=== PATIENT | male | born 1965 | race Caucasian/White ===

== ENCOUNTER 2024-08-16 02:07 | Emergency (ER) | payer OTHER, SELFPAY ==
--- NOTE | ~2024-08-16 | CT_ITS ---
CT brain wo con Ordering provider: Kaila Charlton MD History: 58 years Male with . fall, lac . Comparison: None. Technique: CT of the head without contrast. Radiation reduction technique utilized.The dose-length product was 681 mGy-cm. FINDINGS: BRAIN PARENCHYMA AND CSF SPACES: No midline shift, mass effect or hemorrhage. The brain parenchyma a nd CSF spaces are otherwise normal. VISUALIZED PARANASAL SINUSES: Well aerated. MASTOIDS: Well aerated. BONES: The bones appear intact. SOFT TISSUES: Visualized nasopharynx is normal. Superficial soft tissues are normal. IMPRESSION: No acute intracranial findings. Reviewed, dictated and finalized at location A.
--- NOTE | ~2024-08-16 | XR_ITS ---
XR chest 1V portable Ordering provider: Kaila Charlton MD History: 58 years Male with . syncope . Comparison: January 24, 2018 FINDINGS: MEDIASTINUM: The cardiac silhouette is not enlarged. LUNGS: No infiltrates, effusions or pneumothorax. Slightly prominent bronchovascular markings in the lower lobes. Pneumonitis cannot be excluded. OTHER: No free air under the diaphragm. Degenerative changes of the spine. IMPRESSION: Prominent markings in the lower lobes. Pneumonitis cannot be excluded. Reviewed, dictated and finalized at location A.
--- NOTE | ~2024-08-16 | XR_ITS ---
XR finger 3rd RT min 2V Ordering provider: Kaila Charlton MD History: . injury during fall . Comparison: None. FINDINGS: BONES: No acute fracture or dislocation. JOINT SPACES: Normal. SOFT TISSUES: Normal. IMPRESSION: No acute osseous abnormality. Reviewed, dictated and finalized at location A.
--- NOTE | ~2024-08-16 | CT_ITS ---
CT facial & cervical spine wo Ordering provider: Kaila Charlton MD History: . abrasion nasal bridge; eval fx . Comparison: None. Technique: Thin slice axial CT of the facial bones was performed without contrast. Coronal and sagit radha reformatted images were also obtained. . Automated exposure control and iterative reconstruction technique were employed. The dose-length product was 344.25 mGy-cm. FINDINGS: PARANASAL SINUSES: Bilateral maxillary sinus otherwise, Well aerated. BONES: No facial fracture including no nasal bone fracture. Right nasal septal deviation. ORBITS AND SUPERFICIAL SOFT TISSUES: The optic globes and orbits are normal. The superficial soft tis sues are normal. VISUALIZED MASTOIDS: Well aerated. LIMITED VISUALIZED BRAIN PARENCHYMA: Normal. IMPRESSION: No facial fracture. CT facial & cervical spine wo Ordering provider: Kaila Charlton MD History: . abrasion nasal bridge; eval fx . Comparison: None. Technique: CT of the cervical spine was performed without contrast. Sagittal and coronal reformatted images were also obtained and reviewed. Automated exposure control and iterative reconstruction gemini hnique were employed. The dose-length product was 344.25 mGy-cm. FINDINGS: VERTEBRAE: No subluxation or acute fracture. The occipital condyles are intact. Degenerative changes of the spine. Bony fragments seen near to the odontoid process are most likely ligamentous ossificat ion is seen. DISC SPACES: Narrowing of the disc C5-C6 and C6-C7. Multilevel facet joint disease. Multilevel uncove rtebral joint osteoarthritic changes. PARASPINOUS SOFT TISSUES: Normal. IMPRESSION: No acute osseous abnormality cervical spine. Multilevel degenerative disc disease. Reviewed, dictated and finalized at location A. IMPRESSION: No facial fracture. CT facial & cervical spine wo Ordering provider: Kaila Charlton MD History: . abrasion nasal bridge; eval fx . Comparison: None. Technique: CT of the cervical spine was performed without contrast. Sagittal a nd coronal reformatted images were also obtained and reviewed. Automated expos ure control and iterative reconstruction technique were employed. The dose-omkar th product was 344.25 mGy-cm. FINDINGS: VERTEBRAE: No subluxation or acute fracture. The occipital condyles are intact. Degenerative changes of the spine. Bony fragments seen near to the odontoid p rocess are most likely ligamentous ossification is seen. DISC SPACES: Narrowing of the disc C5-C6 and C6-C7. Multilevel facet joint dise ase. Multilevel uncovertebral joint osteoarthritic changes. PARASPINOUS SOFT TISSUES: Normal.
[2024-08-16 02:03] VITALS: BP 111/72; PULSE 86; RESP 18; TEMP 36.7; O2SAT 98
--- NOTE | 2024-08-16 02:08 | ECG_ITS ---
Test Date: 2024-08-16 02:16:05 Measurements Intervals [place] Rate: 92 P: 29 MA: 187 QRS: -70 QRSD: 88 T: 33 QT: 342 QTc: 423 Interpretive Statements SINUS RHYTHM ANTERIOR MYOCARDIAL INFARCTION , PROBABLY OLD INFERIOR MYOCARDIAL INFARCTION , OF INDETERMINATE AGE Electronically Signed On 08-16-2024 14:01:15 CDT by Noé Christian D.O
[2024-08-16 02:59] LABS: Basophils Percent Auto 0.2 % (0.2-1.2); Eosinophils Absolute Auto 0.3 K/mm3 (0-0.3); Eosinophils Percent Auto 1.6 % (0-4.4); Hemoglobin 17.3 g/dL (14.0-18.0); Immature Granulocyte Absolute 0.07 K/mm3 (0.00-0.031); Immature Granulocyte Percent A 0.4 % (0-0.5); Lymphocytes Absolute Auto 2.37 K/mm3 (0.9-3.2); Lymphocytes Percent Auto 13.9 % (18.3-44.2); Mean Corpuscular HGB Conc 35.3 g/dl (32-36); Mean Corpuscular Hemoglobin 31.7 pg (26-34); Mean Corpuscular Volume 89.7 fl (80-100); Mean Platelet Volume 11.3 fl (7.4-10.4); Monocytes Absolute Auto 0.4 K/mm3 (0.1-0.6); Monocytes Percent Auto 2.5 % (2.6-8.5); Neutrophils Absolute Auto 13.9 K/mm3 (1.3-6.7); Neutrophils Percent Auto 81.4 % (45.5-73.1); Platelet Count Result 181 k/mm3 (150-375); Red Blood Count 5.46 M/mm3 (4.6-6.20); Red Cell Distribution Width 11.9 % (11.5-14.5); White Blood Count 17.1 K/mm3 (4.5-10.0)
[2024-08-16 03:09] LABS: Alanine Aminotransferase 18 U/L (6-50); Albumin Level 4.1 g/dL (3.5-5.1); Alkaline Phosphatase 61 U/L (38-126); Anion Gap 12 mmol/L (4-12); Aspartate Amino Transferase 19 U/L (17-59); Bilirubin,Total 0.9 mg/dL (0.2-1.3); Blood Urea Nitrogen 24 mg/dL (9-20); Calcium 9.3 mg/dL (8.4-10.2); Carbon Dioxide 24 mmol/L (22-30); Chloride 103 mmol/L (98-107); Estimated CRCL calculation 45 ml/min; Estimated Glomerular Filt Rate 42; Glucose 142 mg/dL (65-110); Potassium 3.6 mmol/L (3.4-5.0); Sodium 139 mmol/L (137-145)
--- NOTE | 2024-08-16 05:25 | ED.FALL ---
HPI - Fall General Chief Complaint: Fall Stated Complaint: fall Time Seen by Provider: 08/16/24 05:23 Source: patient and family Mode of arrival: EMS Limitations: no limitations History of Present Illness HPI Narrative: Patient presents with complaint of head laceration after falling, presumably will getting bed. He is not on anticoagulation. He does not remember all the incident. Patient recently placed on a muscle relaxer for a back injury for which he sees Dr Han with [facility] for physical therapy. He denies being prescribed a steroid. Tetanus status unknown. 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 He does have history of kidney resection. He denies any neck pain but he has a history of shoulder pain that radiates into his neck. Patient does not know if he has any other known kidney dysfunction but he had presumed was below as he states that he had blood work done in February with his urologist Dr Haji and everything was reported as normal. Does not have his phone with him to access any patient portal/outside records. He has a history of hypertension who takes 2 medications for this ; family member at bedside is concerned pressure is lower than normal and he was hypotensive for EMS. No nausea but he is having bilateral leg cramps. Also having pain at right middle finger. Related Data Allergies Allergy/AdvReac Type Severity Reaction Status Date / Time No Known Allergies Allergy Verified 08/16/24 02:10 PMFSH Past Medical History Medical History Benign essential HTN Mixed hyperlipidemia Renal cell adenocarcinoma Surgical History Surgical History H/O left radical nephrectomy Family History Family History Mother Family history of malignant neoplasm Other Family history of cardiovascular disease Social History Social History Social History: Smoking status: Never smoker Second hand tobacco smoke exposure: No Alcohol intake: current Drinks per week: 3 Substance use: never Substance use type: does not use Living arrangements: with family Occupation/Education: occupation Gender identity (if verbalized by the patient): Male Sexual Orientation (if Verbalized by the Patient): Straight or Heterosexual Exam Narrative: GENERAL: Well-appearing, well-nourished, and in no acute distress. HEAD: No raccoon eyes, Piedra's sign. 2cm linear abrasion with slightly ulcerated/denuded tissue on forehead but without shanelle laceration or extension into deeper tissue. EYES: Non injected, non icteric ENT: Nares clear, no rhinorrhea or epistaxis. No septal hematoma. Small superficial abrasion at the bridge of his nose, subcentimeter. He also has another small subcentimeter laceration to the right of his nose. NECK: Supple. CHEST: Speaking in full sentences. No respiratory distress. HEART: Regular rate and rhythm. . ABDOMEN: Soft, nondistended. EXTREMITIES: Normal range of motion. Moves all extremities x4 SKIN: Warm, dry, no rash. NEURO: No focal deficits. Alert and oriented x3. Speaks clearly without aphasia or dysarthria. No abnormal movements appreciated. Answers questions appropriately. Follows commands. PSYCH: Normal mood and affect. Course Vital Signs Vital signs: Vital Signs Temperature 98.1 F 08/16/24 02:03 Pulse Rate 86 08/16/24 02:03 Respiratory Rate 18 08/16/24 02:03 Blood Pressure 111/72 08/16/24 02:03 Pulse Oximetry 98 08/16/24 02:03 Oxygen Delivery Room Air 08/16/24 02:03 Temperature 98.1 F 08/16/24 02:03 Pulse Rate 88 08/16/24 07:40 Respiratory Rate 14 08/16/24 07:40 Blood Pressure 96/60 L 08/16/24 07:40 Pulse Oximetry 96 08/16/24 07:40 Oxygen Delivery Room Air 08/16/24 02:03 MDM - Fall MDM Narrative Medical decision making narrative: Patient presents with bleeding from multiple small scattered wounds after phone will getting out of bed. He does not recall the incident or remember trying to get out of bed. He was recently placed on a muscle relaxer for a back injury. In the emergency department they are afebrile with vital signs within normal limits. Hyperglycemia without anion gap acidosis. Patient also has elevated creatinine at 1.7 however this is consistent with past of 1.6 (in 2020). Possibly CKD though not listed in EMR or in clinic note from that year - though I suspect labs were obtained after that clinic visit. Patient states he has 1 kidney after resection of the other in the setting of renal cancer. He states he had labs drawn and he was told they were all normal and he did not believe he has any underlying kidney disorder/disease. For this reason, will presume ANDREAS and give 1L IVFluids and recommend repeat labs. (This was discussed with patient verbally although accidentally omitted from explicit DC instruction printout) Patient's chest x-ray read by Radiology as pneumonitis and given the leukocytosis out of an abundance of precaution will treat with antibiotics. First dose given in the ED with rest of course prescribed. Verifies understanding and is in agreement. Discussed patient's workup extensively with him. The patient is we needs are not lacerations and therefore not in need of any repair but we did discuss appropriate wound care. Patient denies needing work note for today. Discharged home in stable condition. Provided OTC analgesic pain medication Rxs. Differential Diagnosis Differential diagnosis: Likely syncope, concussion with loss of consciousness, concussion without loss of consciousness and other (C-spine injury/fracture/dislocation, intracranial hemorrhage, laceration, abrasions; medication side effect; mechanical fall; symptomatic anemia, electrolyte abnormalities, rhabdomyolysis; finger sprain/strain/fx/dislocation; intracranial hemorrhage) Lab Data Attestation: I reviewed the patient's lab results. Lab results narrative: Leukocytosis 08/16/24 02:16 08/16/24 02:16 Labs: Lab Results 08/16/24 Range/Units 02:16 WBC 17.1 H (4.5-10.0) K/mm3 RBC 5.46 (4.6-6.20) M/mm3 Hgb 17.3 (14.0-18.0) g/dL Hct 49.0 (42.0-52.0) % MCV 89.7 (80-100) fl MCH 31.7 (26-34) pg MCHC 35.3 (32-36) g/dl RDW 11.9 (11.5-14.5) % Plt Count 181 (150-375) k/mm3 MPV 11.3 H (7.4-10.4) fl Immature Gran % (Auto) 0.4 (0-0.5) % Neut % (Auto) 81.4 H (45.5-73.1) % Lymph % (Auto) 13.9 L (18.3-44.2) % [place] % (Auto) 2.5 L (2.6-8.5) % Eos % (Auto) 1.6 (0-4.4) % Baso % (Auto) 0.2 (0.2-1.2) % Lymph # (Auto) 2.37 (0.9-3.2) K/mm3 [place] # (Auto) 0.4 (0.1-0.6) K/mm3 Eos # (Auto) 0.3 (0-0.3) K/mm3 Baso # (Auto) 0.0 (0.0-0.1) K/mm3 Abs Immat Gran (auto) 0.07 H (0.00-0.031) K/mm3 Absolute Neuts (auto) 13.9 H (1.3-6.7) K/mm3 Absolute Nucleated RBC 0.000 (0.0-0.012) K/mm3 Nucleated RBC % 0.0 (0.0-0.2) % Sodium 139 (137-145) mmol/L Potassium 3.6 (3.4-5.0) mmol/L Chloride 103 (98-107) mmol/L Carbon Dioxide 24 (22-30) mmol/L Anion Gap 12 (4-12) mmol/L BUN 24 H (9-20) mg/dL Creatinine 1.71 H (0.7-1.3) mg/dL Estim Creat Clear Calc 45 ml/min Estimated GFR 42 L (59 - ) Glucose 142 H (65-110) mg/dL Calcium 9.3 (8.4-10.2) mg/dL Magnesium 2.2 (1.6-2.3) mg/dL Total Bilirubin 0.9 (0.2-1.3) mg/dL AST 19 (17-59) U/L ALT 18 (6-50) U/L Alkaline Phosphatase 61 (38-126) U/L Total Creatine Kinase 128 (55-170) U/L Total Protein 6.0 L (6.3-8.2) g/dL Albumin 4.1 (3.5-5.1) g/dL Imaging Data Attestation: I personally reviewed and interpreted this imaging study as follows: My impression: Somewhat small volumes, possibly due to timing of imaging Radiologist's impression: Prominent markings in the lower lobes. Pneumonitis cannot be excluded. IMPRESSION: No acute osseous abnormality. IMPRESSION: No acute intracranial findings. IMPRESSION: No facial fracture. ECG Data EKG #1: Attestation: I personally reviewed and interpreted this ECG as follows: ECG completion date: 08/16/24 ECG completion time: 02:16 Interpretation: Normal sinus rhythm at a rate of 92 beats per minute. MD interval 187. QRS 88. QT/QTC 342/423. Poor R-wave progression across the precordial leads. T-wave flattening in lead 3 but otherwise upright in normal in contiguous inferior leads 2 and AVF. No other T-wave inversions. Discharge Plan Discharge Clinical Impression: Leukocytosis, Fall, Abrasion of forehead, Abrasion of face, Muscle cramp, Abnormal chest x-ray, Pain of right middle finger, ANDREAS (acute kidney injury) Patient Disposition: Home, Self-Care Condition: Stable Instructions: Antibiotic Form, Pneumonitis (ED), Acute Kidney Injury (DC), Leukocytosis (ED), Finger Sprain (ED), Leg Cramps (ED), Abrasion (ED), Fall Prevention (ED) Additional Instructions: As we discussed, it is possible that you fell because the muscle relaxer you recently prescribed can be sedating. Discuss with the prescriber weighing the risks/benefits of continuing this medication and/or taking appropriate precautions. The cause of your leg cramps is unclear as your labs were ok in this regard. Given the questionable called possible infection/inflammation/pneumonia/pneumonitis on your chest x-ray and the fact that white blood cell count was elevated, we are treating for infection with a course of antibiotics and you received the 1st dose in the emergency department with the rest of the course prescribed. Acetaminophen/Tylenol (maximum 4000 mg per day) is safe to take with NSAIDs (ibuprofen/Motrin) for pain relief. Follow-up with primary care physician. Because Dr. Lowe recently retired, this may be with Dr. Torres or, if you are unable to establish with him as a patient, the name of an alternative physician is listed below. Patient Language: Macedonian Prescriptions: New azithromycin 250 mg tablet 250 mg PO DAILY 4 Days Qty: 4 0RF Rx Instructions: start on day 2 of therapy (08/17/24); received first dose in ED 08/16/24 acetaminophen 500 mg capsule 1,000 mg PO Q6H PRN (Reason: pain) Qty: 20 0RF ibuprofen 600 mg tablet 600 mg PO TID PRN (Reason: pain) Qty: 20 0RF No Action fosinopril 20 mg tablet 20 mg PO DAILY Qty: 90 2RF Follow-up/Referrals: Arnaldo Torres MD [Physician] - Sim Barnett MD [Physician] - (family practice) Prasanna,Chrissy Scruggs MD [Primary Care Provider] - Time of Disposition: 07:20
[2024-08-16 05:36] LABS: Creatine Kinase 128 U/L (55-170); Magnesium 2.2 mg/dL (1.6-2.3)
[2024-08-16] MEDS: HYDROcodone/acetaminophen (*CRX) 5-325 MG TABLET 1 TAB PO (06:25)
[2024-08-16] MEDS: TETANUS,DIPHTHERIA,AC PERTUSSIS ADULT (0.5 ML) BOOSTRIX IM (06:25)
[2024-08-16] MEDS: SODIUM CHLORIDE 0.9% IV 1,000 ML 999 ML IV CONT (06:26)
[2024-08-16] MEDS: AZITHROMYCIN 250 MG TABLET 500 MG PO (07:32)
[2024-08-16 07:40] VITALS: BP 96/60; PULSE 88; RESP 14; O2SAT 96
== END 2024-08-16 07:45 | disposition home or self-care (01) ==
PROVIDERS: Emergency Provider Student in an Organized Health Care Education/Training Program; PCP Family Medicine
DX: S00.81XA Abrasion of other part of head, initial encounter (principal); S00.31XA Abrasion of nose, initial encounter; R25.2 Cramp and spasm; M79.644 Pain in right finger(s); N17.9 Acute kidney failure, unspecified; D72.829 Elevated white blood cell count, unspecified; R91.8 Other nonspecific abnormal finding of lung field; Z23 Encounter for immunization; I10 Essential (primary) hypertension; E78.2 Mixed hyperlipidemia; Z85.528 Personal history of other malignant neoplasm of kidney; Z90.5 Acquired absence of kidney; Z79.899 Other long term (current) drug therapy; R94.31 Abnormal electrocardiogram [ECG] [EKG]; W06.XXXA Fall from bed, initial encounter
CPT/HCPCS: 36415; 70450; 70486; 71045; 72125; 73140; 80053; 82550; 83735; 85025; 90471; 90715; 93005; 96360; 99284; A9270; J7030